=== PATIENT | male | born 1975 | race Two or more races ===

== ENCOUNTER 2016-12-21 19:45 | Emergency (ER) | payer OTHER ==
[~2016-12-21] VITALS: Ht 180.3 cm; Wt 77.1 kg
[2016-12-21 21:04] LABS: CONDITION Y; Hematocrit 45.7 % (41.0-53.0); Hemoglobin 15.5 g/dL (13.5-17.5); Mean Corpuscular Hemoglobin 30.1 pg (28.0-32.0); Mean Corpuscular Hgb Conc. 33.9 g/dL (32.0-36.0); Mean Platelet Volume 8.3 fL (7.4-10.4); Platelet Count (auto) 368 10^3/uL (140-450); Red Cell Distribution Width 13.3 % (11.6-16.0); SUSPECT SEE PRINTOUT; White Blood Cell 18.2 10^3/uL (4.4-10.8)
[2016-12-21 21:24] LABS: Metamyelocytes % 0; Myelocytes % 0; Promyelocytes % 0; Reactive Lymphocytes 0
[2016-12-21] MEDS ORDERED: ONDANSETRON HCL 4 MG/2 ML VIAL IV ONE (21:45)
[2016-12-21] MEDS ORDERED: HYDROcodone-ACET 10/325MG TAB PO ONE (21:45)
[2016-12-21] MEDS ORDERED: MORPHINE SULF INJ 2 MG/ML SYRINGE 1ML IV ONE (22:00)
[2016-12-21] MEDS ORDERED: MECLIZINE HCL 25 MG TAB PO ONE (22:00)
[2016-12-21 22:07] LABS: Platelet Estimate Adequate
[2016-12-21 22:46] LABS: Potassium 4.2 mmol/L (3.5-5.1); Sodium 140 mmol/L (136-145)
[2016-12-21 22:47] LABS: Albumin 3.5 g/dL (3.4-5.0); Alkaline Phosphatase 80 U/L (45-117); Anion Gap 12 (5-15); Aspartate Aminotransferase 19 U/L (15-37); BUN/Creatinine Ratio 11.5; Bilirubin, Total 0.5 mg/dL (0.2-1.0); Blood Urea Nitrogen 13 mg/dL (7-18); Calcium 8.6 mg/dL (8.5-10.1); Carbon Dioxide 20 mmol/L (21-32); Chloride 108 mmol/L (98-107); GFR African American 91 mL/min; GFR Non-African American 75 mL/min; Glucose 118 mg/dL (74-106); Total Protein 7.4 g/dL (6.4-8.2)
[2016-12-22 00:03] LABS: Urine Bilirubin Negative (Negative); Urine Blood TRACE /uL (Negative); Urine Color Yellow (Yellow); Urine Glucose Normal (Normal); Urine Ketone 2+ (Negative); Urine Mucus FEW (None Seen); Urine Nitrite Negative (Negative); Urine RBC 7 /hpf (0 - 3); Urine Urobilinogen Normal (Negative)
[2016-12-22 00:33] VITALS: BP 112/56
== END 2016-12-22 02:56 | disposition home or self-care (01) ==
LOC: EDBD 19:45 → ER 19:46
DX: R53.1 Weakness (principal); R42 Dizziness and giddiness; D72.829 Elevated white blood cell count, unspecified; G43.909 Migraine, unspecified, not intractable, without status migrainosus
CPT/HCPCS: 36415; 70450; 71010; 80053; 81001; 83735; 84484; 85007; 85027; 96374; 96375; 99285; J2270; J2405; J8597